=== PATIENT | female | born 1930 | race Hispanic/Latino ===

== ENCOUNTER 2017-04-21 09:04 | Day surgery (SDC) | payer MEDICARE ==
[2017-04-16 11:43] VITALS: BMI 22.1
[2017-04-21] MEDS ORDERED: Propofol 10 mg/ml Inj (20 ML) ONE (11:42)
[2017-04-21] MEDS ORDERED: Etomidate 20 mg/10ml Inj IV ONE (11:42)
[2017-04-21] MEDS ORDERED: Sodium Chloride 0.9% 1,000 ML IV SCH (12:30)
[2017-04-21 14:27] VITALS: BP 160/76; PULSE 56; RESP 18; TEMP 97.3; O2SAT 96
== END 2017-04-21 14:09 | disposition home or self-care (01) ==
LOC: ENDO 09:04
PROVIDERS: ATTEND Internal Medicine
DX: Z12.11 Encounter for screening for malignant neoplasm of colon (principal); K63.5 Polyp of colon; K57.30 Diverticulosis of large intestine without perforation or abscess without bleeding; K64.8 Other hemorrhoids; I10 Essential (primary) hypertension
CPT/HCPCS: 45380; 88305; J2001; J2704; J7040 ×2